=== PATIENT | male | born 1945 | race Caucasian/White ===

== ENCOUNTER 2021-08-10 07:00 | Outpatient (CLI) | payer MEDICARE, MEDICAID ==
[~2021-08-10] VITALS: Ht 188 cm; Wt 79.5 kg
[2021-08-11] MEDS ORDERED: LISI10TA25 PO (14:33)
[2021-08-11] MEDS ORDERED: TMSL.4C PO (14:33)
[2021-08-11] MEDS ORDERED: TEMA30CA PO (14:33)
[2021-08-11] MEDS ORDERED: ATEN50TA PO (14:33)
[2021-08-11] MEDS ORDERED: ATOR80TA76 PO (14:33)
[2021-08-11] MEDS ORDERED: HYDR-3817 PO (14:33)
[2021-08-11] MEDS ORDERED: APIX5TAB PO (14:33)
== END 2021-08-11 14:36 | disposition home or self-care (01) ==
LOC: PREOP 07:00
PROVIDERS: ATTEND Specialist
DX: Z01.818 Encounter for other preprocedural examination (principal)

== ENCOUNTER 2021-08-14 08:41 | Day surgery (SDC) | payer MEDICARE, MEDICAID ==
[~2021-08-14] VITALS: Ht 188 cm; Wt 79.5 kg
[~2021-08-14 08:41] MED LIST: APIX5TAB PO; ATEN50TA PO; ATOR80TA76 PO; HYDR-3817 PO; LISI10TA25 PO; TEMA30CA PO; TMSL.4C PO
[2021-08-14] MEDS ORDERED: POVIDONE (BETADINE) OPHTH SOLN 5% 30 ML OP ONE (09:15)
[2021-08-14] MEDS ORDERED: TIMOLOL MALEATE 0.5% 5 ML (TIMOPTIC) BTL OU PRN (09:15)
[2021-08-14] MEDS ORDERED: LIDOCAINE PF 1% 2 ML VIAL IR PRN (09:15)
[2021-08-14] MEDS ORDERED: MOXIFLOXACIN OPHTH SOLN 5 MG/ML 0.3 ML SYRINGE OP ONE (09:15)
[2021-08-14] MEDS: TETRACAINE 0.5% OPHTH SOLN 4 ML BTL (SINGLE DOSE ONLY) OU PRN ×4 (09:21→09:38)
[2021-08-14] MEDS: PHENYLEPHRINE 10% OPHTH (NEO-SYN) 5 ML BTL OU SCH ×3 (09:28→09:38)
[2021-08-14] MEDS: TROPICAMIDE 1% OPH SOLN (MYDRIACYL) 15 ML BTL OP SCH ×3 (09:28→09:38)
[2021-08-14 09:34] VITALS: BP 147/87
[2021-08-14] MEDS ORDERED: MIDAZOLAM 2 MG/2 ML (VERSED) VIAL ONE (09:50)
--- NOTE | 2021-08-14 10:10 | Ophthalmologist Pre-Op Note ---
Pre-Operative Progress Note H&P Reviewed The H&P was reviewed, patient examined and no changes noted. Date H&P Reviewed: Aug 14, 2021 Time H&P Reviewed: 10:10 Pre-Op Dx Cataract, Right Eye RAMBO CUELLAR MD Aug 14, 2021 10:10
[2021-08-14] MEDS ORDERED: acetaZOLAMIDE ER 500 MG CAP (DIAMOX SEQUELS) PO ONE (10:30)
--- NOTE | 2021-08-14 10:37 | Ophthalmology Operative Report ---
Cataract removal/placement IOL PREOPERATIVE DIAGNOSIS: Cataract Right Eye POSTOPERATIVE DIAGNOSIS: Cataract Right Eye PROCEDURE: Cataract removal and placement of posterior chamber implant, right eye SURGEON: Adin Cuellar ANESTHESIA: Topical with sedation COMPLICATIONS: None ESTIMATED BLOOD LOSS: Minimal DESCRIPTION OF PROCEDURE: After proper informed consent was obtained, the patient, a 75 male, was taken to the Operating Room and the right eye was anesthetized with tetracaine. The right eye was then prepped and draped in the usual manner. A wire lid speculum was placed. A paracentesis was made at the left hand position. Preservative free lidocaine was injected into the anterior chamber followed by viscoelastic. A clear corneal incision was made in the temporal position. A capsulorrhexis was preformed and the central nuclear and cortical material were removed. The posterior capsule was polished and [place] 25.0 AU00T0 IOL was placed into the capsular bag. The residual viscoelastic was aspirated and balanced saline solution was injected into the anterior chamber. Moxifloxacin was injected into the anterior chamber. The wound was checked and found to be water tight. The patient tolerated the procedure well without complications. ADIN CUELLAR MD Aug 14, 2021 10:37
[2021-08-14 10:44] VITALS: BP 131/80
--- NOTE | 2021-08-14 13:11 | Anesthesia-General Post-Op ---
MAC Patient Condition Mental Status/LOC: Same as Preop Cardiovascular: Satisfactory Nausea/Vomiting: Absent Respiratory: Satisfactory Pain: Controlled Complications: Absent Post Op Complications Complications None Follow Up Care/Instructions Patient Instructions None needed. Anesthesiology Discharge Order Discharge Order Patient is doing well, no complaints, stable vital signs, no apparent adverse anesthesia problems. No complications reported per nursing. SANDEEP JOSEPH CRNA Aug 14, 2021 13:11
== END 2021-08-14 10:47 ==
LOC: SDC 08:41
PROVIDERS: ATTEND Specialist
DX: H25.11 Age-related nuclear cataract, right eye (principal); I10 Essential (primary) hypertension; F17.200 Nicotine dependence, unspecified, uncomplicated
CPT/HCPCS: 66984; V2632

== ENCOUNTER 2021-12-23 05:29 | Outpatient (CLI) | payer MEDICARE, MEDICAID ==
[~2021-12-23] VITALS: Ht 187.9 cm; Wt 81.8 kg
== END 2021-12-30 13:35 | disposition home or self-care (01) ==
LOC: PREOP 05:29
PROVIDERS: ATTEND Specialist
DX: Z01.818 Encounter for other preprocedural examination (principal)

== ENCOUNTER 2022-01-01 07:49 | Day surgery (SDC) | payer MEDICARE, MEDICAID ==
[~2022-01-01] VITALS: Ht 187.9 cm; Wt 81.8 kg
[2022-01-01 08:01] VITALS: BP 135/83
[2022-01-01] MEDS: TETRACAINE 0.5% OPHTH SOLN 4 ML BTL (SINGLE DOSE ONLY) OU PRN ×2 (08:04→08:10)
[2022-01-01] MEDS: PHENYLEPHRINE 10% OPHTH (NEO-SYN) 5 ML BTL OU PRN ×2 (08:05→08:10)
[2022-01-01] MEDS: TROPICAMIDE 1% OPH SOLN (MYDRIACYL) 15 ML BTL OU PRN ×2 (08:05→08:10)
--- NOTE | 2022-01-01 08:07 | Ophthalmologist Pre-Op Note ---
Pre-Operative Progress Note H&P Reviewed The H&P was reviewed, patient examined and no changes noted. Date H&P Reviewed: January 01, 2022 Time H&P Reviewed: 08:07 Pre-Op Dx Secondary Cataract, Right Eye RAMBO CUELLAR MD January 01, 2022 08:07
--- NOTE | 2022-01-01 08:58 | Ophthalmology Operative Report ---
YAG Capsulotomy PREOPERATIVE DIAGNOSIS: Secondary Cataract Right Eye POSTOPERATIVE DIAGNOSIS: Secondary Cataract Right Eye PROCEDURE: YAG Capsulotomy, right eye SURGEON: Adin Cuellar ANESTHESIA: Topical anesthesia COMPLICATIONS: None ESTIMATED BLOOD LOSS: Minimal DESCRIPTION OF PROCEDURE: After proper informed consent was obtained, the patient's, a 76 male, right eye received one drop of Tropicamide and one drop of Tetracaine. The patient was then placed at the YAG laser and using a power of [4.0 ] millijoules and [21 ] bursts were used to fashion a central capsulotomy. The patient tolerated the procedure well without complications. ADIN CUELLAR MD January 01, 2022 08:58
== END 2022-01-01 08:40 | disposition home or self-care (01) ==
LOC: SDC 07:49
PROVIDERS: ATTEND Specialist
DX: H26.40 Unspecified secondary cataract (principal); F17.200 Nicotine dependence, unspecified, uncomplicated